=== PATIENT | female | born 1960 | race Caucasian/White ===

== ENCOUNTER → 2019-11-03 | Day surgery (SDC) | payer BC ==
[2019-11-01 11:21] VITALS: BMI 31.6
[~2019-11-03] MED LIST: LACTATED RINGERS 1,000 ML IV SCH; PROPOFOL 10 MG/ML 20 ML VIAL IV ONE; SODIUM CHLORIDE 0.9% 1,000 ML IV SCH
[2019-11-03 07:25] VITALS: RESP 18; TEMP 98.2
[2019-11-03 07:29] LABS: Basophils % (A) 1 %; Eosinophils # (A) 0.2 k/uL (0-0.7); Eosinophils % (A) 5 %; HCT 41.7 % (34.0-46.0); HGB 13.9 gm/dL (11.4-16.0); Lymphocytes # (A) 1.3 k/uL (1.0-4.8); Lymphocytes % (A) 29 %; MCH 31.9 pg (25.0-35.0); MCHC 33.3 g/dL (31.0-37.0); MCV 95.9 fL (80.0-100.0); Mean Platelet Volume 6.6; Monocytes # (A) 0.4 k/uL (0-1.0); Monocytes % (A) 8 %; Neutrophils # (A) 2.4 k/uL (1.3-7.7); Neutrophils % (A) 55 %; Platelet Count 263 k/uL (150-450); RBC 4.34 m/uL (3.80-5.40); RDW 12.1 % (11.5-15.5); WBC 4.3 k/uL (3.8-10.6)
[2019-11-03 07:53] LABS: African American GFR (CKD) >90 (>60 ml/min/1.73 sqM); Anion Gap 6 mmol/L; Blood Urea Nitrogen 14 mg/dL (7-17); Calcium 9.3 mg/dL (8.4-10.2); Carbon Dioxide 26 mmol/L (22-30); Chloride 108 mmol/L (98-107); Glucose 105 mg/dL (74-99); Non-African American GFR(CKD) 88 (>60 ml/min/1.73 sqM); Potassium 4.3 mmol/L (3.5-5.1); Sodium 140 mmol/L (137-145)
--- NOTE | 2019-11-03 08:43 | P.PCN ---
Preoperative Diagnosis: Diagnosis Congestive heart failure Nonischemic cardiomyopathy Status post [employer] medical biventricular ICD One run of nonsustained wide complex tachycardia consistent with supraventricular tachycardia with aberrancy Biventricular ICD was interrogated [employer] medical model #3357-40 see, serial number [id number] P waves 2.9 mV, pacing threshold 0.4 V at 0.5 ms and pacing impedance of 400 r waves 12 mV, pacing threshold 1.5 V at 1 ms and pacing impedance of 460 ohms LV pacing threshold of 1.25 V at 0.5 ms, pacing impedance of 1275 ohms High-voltage impedance 75 ohms Her arrhythmia in the VT zone was evaluated Morphology of the ventricular segmental is different from sinus but the atrium drives the ventricle Irregular rhythm, with RVR Defibrillation 11 testing was performed in the cathodal vector DC fibber shock was used to induce ventricular fibrillation His was adequately and appropriately detected at least sensitivity and successfully internally defibrillated Charge time 1.6 seconds, shocking impedance 75 ohms No pushup noise Device was reprogrammed In view of her supraventricular tachycardia with RVR, detection intervals in the VT 1 zone were increased to 90 beats Carvedilol increase to 1-1/2 tablets twice daily, each tablet 6.25 mg MADIT RIT programming Morphology discriminators turned on Follow-up with Dr. Pedroza within a month Discussed with Dr. Pedroza
[2019-11-03 09:12] VITALS: BP 144/77; PULSE 66
== END | disposition home or self-care (01) ==
LOC: CATHEP 06:51
PROVIDERS: ATTEND Internal Medicine Clinical Cardiac Electrophysiology
DX: Z45.02 Encounter for adjustment and management of automatic implantable cardiac defibrillator (principal); I42.8 Other cardiomyopathies; I11.0 Hypertensive heart disease with heart failure; I50.9 Heart failure, unspecified; Z91.14 Patient's other noncompliance with medication regimen; E03.9 Hypothyroidism, unspecified; E78.00 Pure hypercholesterolemia, unspecified; G47.33 Obstructive sleep apnea (adult) (pediatric); Z99.89 Dependence on other enabling machines and devices; Z79.899 Other long term (current) drug therapy
CPT/HCPCS: 80048; 84443; 85025; 93642

== ENCOUNTER → 2022-08-19 | Outpatient (CLI) | payer BC ==
--- NOTE | 2022-08-19 22:49 | BD ---
EXAMINATION TYPE: Axial Bone Density DATE OF EXAM: 08/19/2022 CLINICAL HISTORY: 62 years old Female. ICD-10 CODE: N951 POST YARELI SYMPTOMS Height: 62.5 in Weight: 201 lbs FRAX RISK QUESTIONS: Family History (Parent hip fracture): yes mother RISK FACTORS HISTORY OF: Family History of Osteoporosis: yes mother Active: yes Postmenopausal woman: age 48 Take estrogen and/or progesterone medications: yes How lon+ years MEDICATIONS: Additional Medications: heart meds, lisinopril, blood pressure meds, EXAM MEASUREMENTS: Bone mineral densitometry was performed using the Receptor System. Bone mineral density as measured about the Lumbar spine is: ----- L1-L4(G/cm2): 1.149 T Score Values are as follows: ----- L1: -0.7 ----- L2: 0.0 ----- L3: 0.7 ----- L4: -1.0 ----- L1-L4: -0.3 Z Score Values are as follows: ----- L1: 0.0 ----- L2: 0.7 ----- L3: 1.3 ----- L4: -0.4 ----- L1-L4: 0.4 Bone mineral density baseline Bone mineral density about the R hip (g/cm2): 0.950 Bone mineral density about the L hip (g/cm2): 0.971 T Score values are as follows: -----R Neck: -1.1 -----L Neck: -1.4 -----R Total: -0.5 -----L Total: -0.3 Z Score values are as follows: -----R Neck: -0.3 -----L Neck: -0.6 -----R Total: 0.1 -----L Total: 0.2 Bone mineral density baseline FRAX%s: The graph provided illustrates a 15.4% chance for a major osteoporotic fx and a 0.8% chance f or the hips probability for fx in 10 years time. IMPRESSION: Osteopenia (T Score between -2.5 and -1). There is slightly increased risk of fracture and the patient may be considered for treatment. Re-Screen 2-5 years. NOTE: T-SCORE=SD OF THE YOUNG ADULT MEAN.
--- NOTE | 2022-08-20 15:19 | MM ---
Reason for Exam: Screening (asymptomatic). Last mammogram was performed 21 year(s) and 6 month(s) ago. Patient History: Menarche at age 10. Patient has no children. Postmenopausal. Currently using Estrogen and Progesterone, starting at age 50. Paternal grandmother had breast cancer, bilateral, at or over age 50. Risk Values: Amanda 5 year model risk: 1.8%. NCI Lifetime model risk: 7.2%. Prior Study Comparison: 08/05/1994 Screening Mammogram, [facility]. 02/21/1999 Bilateral Screening Mammogram, [facility]. 02/24/2001 Bilateral Screening Mammogram, [facility]. 03/11/2001 Right Special View Mammogram, [facility]. 09/16/2001 Right Diagnostic Mammogram, [facility]. Tissue Density: There are scattered fibroglandular densities. Findings: Analyzed By CAD. Pattern appears symmetrical. Pacemaker overlies the left chest. No suspicious groups of microcalcifications, spiculated or lobular masses, architectural distortion or other secondary signs of malignancy are mammographically apparent. Overall Assessment: Benign, BI-RAD 2 Management: Screening Mammogram of both breasts in 1 year. A negative mammogram report should not preclude additional follow up of suspicious palpable abnormalities. Patient should continue monthly self breast exam. A clinical breast exam by your physician is recommended on an annual basis and results should be correlated with mammographic findings. Electronically signed and approved by: Truong Flaherty D.O. Radiologis
== END | disposition home or self-care (01) ==
LOC: RADMAMWWP 13:37
PROVIDERS: ATTEND Obstetrics & Gynecology
DX: Z12.31 Encounter for screening mammogram for malignant neoplasm of breast (principal); M85.89 Other specified disorders of bone density and structure, multiple sites; Z78.0 Asymptomatic menopausal state; Z80.3 Family history of malignant neoplasm of breast
CPT/HCPCS: 77063; 77067; 77080

== ENCOUNTER 2023-05-29 12:13 | Day surgery (SDC) | payer BC, MEDICARE ==
[~2023-05-29 12:13] MED LIST changes: -PROPOFOL 10 MG/ML 20 ML VIAL IV ONE; +ceFAZolin 1 GM in SODIUM CHLORIDE 0.9% IRRIG BTL 250 ML IRRIGATION PRN
[2023-05-29] MEDS: SODIUM CHLORIDE 0.9% 1,000 ML IV ONE (12:30)
[2023-05-29 12:46] LABS: Basophils % (A) 1 %; Eosinophils # (A) 0.2 k/uL (0-0.7); Eosinophils % (A) 3 %; HCT 40.9 % (34.0-46.0); HGB 13.7 gm/dL (11.4-16.0); Lymphocytes # (A) 1.3 k/uL (1.0-4.8); Lymphocytes % (A) 29 %; MCH 31.6 pg (25.0-35.0); MCHC 33.4 g/dL (31.0-37.0); MCV 94.6 fL (80.0-100.0); Mean Platelet Volume 7.3; Monocytes # (A) 0.3 k/uL (0-1.0); Monocytes % (A) 7 %; Neutrophils # (A) 2.7 k/uL (1.3-7.7); Neutrophils % (A) 58 %; Platelet Count 260 k/uL (150-450); RBC 4.32 m/uL (3.80-5.40); RDW 12.2 % (11.5-15.5); WBC 4.7 k/uL (3.8-10.6)
[2023-05-29 13:12] LABS: African American GFR (CKD) >90 (>60 ml/min/1.73 sqM); Anion Gap 7 mmol/L; Blood Urea Nitrogen 13 mg/dL (7-17); Calcium 9.3 mg/dL (8.4-10.2); Carbon Dioxide 24 mmol/L (22-30); Chloride 108 mmol/L (98-107); Glucose 107 mg/dL (74-99); Non-African American GFR(CKD) 86 (>60 ml/min/1.73 sqM); Potassium 4.3 mmol/L (3.5-5.1); Sodium 139 mmol/L (137-145)
[2023-05-29 13:28] VITALS: RESP 16; TEMP 97.7
[2023-05-29] MEDS ORDERED: KETAMINE HCL IN 0.9 % NACL 50 MG/5 ML SYRINGE ONE (14:36)
[2023-05-29] MEDS ORDERED: fentaNYL (PF) 50 MCG/ML 2 ML AMP ONE (14:36)
[2023-05-29] MEDS ORDERED: MIDAZOLAM 2 MG/2 ML VIAL ONE (14:36)
[2023-05-29] MEDS ORDERED: PROPOFOL 10 MG/ML 20 ML VIAL IV ONE (14:36)
[2023-05-29] MEDS ORDERED: GLYCOPYRROLATE 0.2 MG/ML 2 ML VIAL ONE (14:36)
[2023-05-29] MEDS ORDERED: LIDOCAINE 1% INJ 10MG/ML (20 ML MDV) ONE (15:05)
[2023-05-29] MEDS: LIDOCAINE 1% INJ 10MG/ML (20 ML MDV) SQ ONE (15:15)
[2023-05-29] MEDS: VANCOMYCIN 1,500 MG in SODIUM CHLORIDE 0.9% 500 ML 500 ML IVPB PRN (15:33)
[2023-05-29] MEDS ORDERED: ONDANSETRON 4 MG/2 ML VIAL IVP STA (16:45)
[2023-05-29] MEDS: ONDANSETRON 4 MG/2 ML VIAL ONE (16:48)
[2023-05-29] MEDS: ACETAMINOPHEN IV (For NPO) 1,000 MG in EMPTY BAG 1 BAG IVPB STA (16:52)
[2023-05-29] MEDS ORDERED: ACETAMINOPHEN TAB 325 MG TAB PO PRN (16:53)
--- NOTE | 2023-05-29 17:00 | P.EPPROC ---
- EP Procedure Note Electrophysiology Procedure Note: Diagnosis History of cardiomyopathy, nonischemic in nature Congestive heart failure [place] Heart Association class class II Wide QRS left bundle branch block morphology Improvement in LV systolic function with biventricular pacing, left ventricular ejection fraction has improved to 50% as expected in a female with nonischemic cardiomyopathy with a left bundle branch block pattern Procedure: Biventricular ICD generator change for device at SADIE, normal battery depletion Result: Successful biventricular ICD generator change Atrial lead: 3.5 mV, pacing threshold in the atrium 0.5 V at point 5 ms and pacing impedance 390 ohms RV ICD lead: Greater than 12 mV, pacing threshold 1.5 V at 1 ms pacing impedance of 600 ohms Left ventricular lead: 1.5 V at 0.5 ms pace impedance of 1350 ohms High-voltage impedance 68 ohms Procedure details: Patient was brought to the EP lab in a fasting state. Written informed consent was obtained prior to the procedure. Options, pros and cons, benefits and risks and complications discussed with patient in detail prior to the procedure (shared decision making) previously. Importance of continuing medical treatment emphasized previously. Alternatives discussed previously. Under conscious sedation an incision was made directly over the previous surgical site after antibiotic infusion. Incision was carried down to the level of the generator. Chronic generator implanted New Villanueva generator implanted, unify [employer] model #3357-40 C Transfer tech pocket irrigated with antibiotic solution. Antibiotic pouch placed Leads connected to the biventricular ICD generator. Wound closed in 3 layers and dressed per protocol Biventricular ICD interrogated and programmed. Appropriate pacing parameters, antitachycardia therapies with antitachycardia pacing cardioversion defibrillations programmed. AV delay and biventricular pacing parameters programmed to achieve optimal physiologic pacing Patient tolerated the procedure well without any acute complications. See scanned device report in EMR for lead details
[2023-05-29] MEDS ORDERED: carvediloL 6.25 MG TAB PO SCH (17:30)
[2023-05-29 19:20] VITALS: BP 186/91; PULSE 72
[2023-05-30] MEDS ORDERED: LEVOTHYROXINE 50 MCG TAB PO SCH (06:30)
[2023-05-30] MEDS ORDERED: LOSARTAN 50 MG TAB PO SCH (09:00)
== END 2023-05-29 20:30 | disposition home or self-care (01) ==
LOC: CATHEP 12:13 → 6NMEDSUR 16:48 → CATHEP 20:30
PROVIDERS: ATTEND Internal Medicine Clinical Cardiac Electrophysiology
DX: I44.7 Left bundle-branch block, unspecified (principal); I42.9 Cardiomyopathy, unspecified; I11.0 Hypertensive heart disease with heart failure; I50.9 Heart failure, unspecified; E78.5 Hyperlipidemia, unspecified; G47.33 Obstructive sleep apnea (adult) (pediatric); E03.9 Hypothyroidism, unspecified; Z95.0 Presence of cardiac pacemaker; Z79.890 Hormone replacement therapy; Z79.899 Other long term (current) drug therapy; Z98.890 Other specified postprocedural states
CPT/HCPCS: 33264; 80048; 85025; C1882; J2250; J3370; J0690; J2405; J2001; J3010; J0131; J2704

== ENCOUNTER → 2024-08-09 | Outpatient (CLI) | payer MEDICARE | END | disposition home or self-care (01) | LOC: RADMAMWWP 13:13 | PROVIDERS: ATTEND Family Medicine | DX: Z53.9 Procedure and treatment not carried out, unspecified reason (principal) ==

== ENCOUNTER → 2024-08-26 | Outpatient (CLI) | payer MEDICARE ==
[2024-08-26 14:55] VITALS: BP 150/88; PULSE 69; RESP 12; TEMP 98.1
--- NOTE | 2024-08-26 15:25 | P.SLEEP ---
History of Present Illness DATE: 08/26/2024 CONSULTATION/NEW PATIENT EVALUATION HISTORY OF PRESENT ILLNESS/SLEEP-WAKE EVALUATION: 64-year-old lady had been e valuated in the sleep center for possible obstructive sleep apnea hypopnea syndrome. Patient has history of obstructive sleep apnea diagnosed in 2011, she was on CPAP treatment, stopped treatment because developed sinus problems with CPAP. Last CPAP unit more than 5-year-old. SLEEP SCHEDULE: Usually sleep schedule from 10 PM to 7 AM 7 days a week. FALLING ASLEEP: Sometimes patient has difficulties with falling asleep. DURING SLEEP: Patient has loud snoring and wakes up from sleep 5 times with episodes of stop breathing during the sleep. Positive history of grinding teeth, dry mouth. No history of hypnogogical hallucinations, sleep paralysis, or cataplexy. DURING THE DAY/WAKE STATE: Patient feels sleepiness during the day. Truman sleepiness scale is an extremely high range of 17. Patient may take up to 2 naps during the day. PAST MEDICAL HISTORY: Hypertension, hypothyroidism, cardiac arrhythmia. PAST SURGICAL HISTORY: Permanent pacemaker insertion. MEDICATIONS: Please see below. SOCIAL HISTORY: Please see follow. FAMILY HISTORY: Please see below. REVIEW OF SYSTEMS: Loud snoring, multiple awakenings from sleep, sleepiness during the day. No fevers. No double vision. No recent chest pain. No shortness of breath. No abdominal pain. No bleeding episodes. No blood in urine. No seizure episodes. PHYSICAL EXAMINATION: GENERAL: A pleasant patient without any distress. VITAL SIGNS: Please see below, weight 205 pounds, BMI 34.6. HEENT: PERRLA, EOMI. Evaluation of oropharynx showed tongue protrudes midline, low position of soft palate Mallampati 4. NECK: Supple. No JVD. Thyroid is not palpable. [] inches in circumference. LUNGS: Clear to percussion and to auscultation. Good air exchange. No wheezing or rhonchi. HEART: S1, S2 regular. No murmurs, gallops or rubs. ABDOMEN: Soft and nontender. Bowel sounds are present. No organomegaly appreciated. EXTREMITIES: No clubbing or cyanosis. MEDICAL SERVICES ASSISTANT: Awake, alert, and oriented x3. Cranial nerves 2 to 7 intact. There is no fasciculation or atrophy noted. No focal deficits observed. ASSESSMENT: 1. Loud snoring, multiple awakenings from sleep up to 5 times, extremely low position of soft palate Mallampati 4, sleepiness with Truman Sleepiness Scale 17, history of obstructive sleep apnea. Obstructive sleep apnea hypopnea syndrome. 2. Obesity, BMI 34.6. 3. Hypertension. 4. Hypothyroidism. 5 status post permanent pacemaker insertion. PLAN: 1. Polysomnography for evaluation of patient's breathing during sleep. 2. Following plan after reading sleep study. 3. Preferable position during sleep on the side. 4. No driving if patient feels any sleepiness. Patient is aware of civil and criminal liability for unsafe driving. 5. Sleep hygiene with regular sleep time for at least 7.5-8 hours. 6. Watching and losing weight. Thank you very much for referring this patient for consultation. Sincerely, Manuel Lamas MD, PhD, FAASM. Diplomat of [place] [employer] Sleep Medicine, Sleep Medicine Board by [place] [employer] Specialities [place] [employer] Medicine Extension Service Advisor of [facility] [place] cc: Kelsey Tee MD Past Medical History Past Medical History: Sleep Apnea/CPAP/BIPAP Additional Past Medical History / Comment(s): See Dr Rehman H&P, hemorrhoids, uses CPAP History of Any Multi-Drug Resistant Organisms: None Reported Past Surgical History: AICD Past Anesthesia/Blood Transfusion Reactions: No Reported Reaction Type of Cardiac Device: Biventricular Pacemaker, AICD Device Placement Date:: 2011 or 2012 Past Psychological History: No Psychological Hx Reported Smoking Status: Never smoker Past Alcohol Use History: Occasional Past Drug Use History: None Reported - Past Family History Sister(s) Family Medical History: Cancer Medications and Allergies Home Medications Medication Instructions Recorded Confirmed Type Carvedilol [Coreg] 6.25 mg PO BID 08/30/15 08/26/24 History Estrogen,Con/M-Progest Acet 1 each PO DAILY 08/30/15 05/29/23 History [Prempro 0.45-1.5 mg Tablet] L.acidoph,Paracasei, B.lactis 1 each PO DAILY 08/30/15 05/26/23 History [Probiotic] Losartan [Cozaar] 50 mg PO DAILY 11/01/19 08/26/24 History Levothyroxine Sodium [Synthroid] 50 mcg PO DAILY 05/26/23 08/26/24 History Allergies Allergy/AdvReac Type Severity Reaction Status Date / Time horse dander Allergy Unknown Verified 05/29/23 12:33 pistachio nut Allergy Anaphylaxis Verified 05/29/23 12:33 Physical Exam Vitals: Vital Signs Temp Pulse Resp BP Pulse Ox 08/26/24 14:51 98.1 F 69 12 150/88 96 Sleep Note - Sleep Data ESS Total: 17 - Sleep Note Sleep Note: Temperature: 98.1 F Pulse Rate: 69 Respiratory Rate: 12 Blood Pressure: 150/88 SpO2: 96 Height: Weight: BMI: Neck Circumference:
== END ==
LOC: 3 N SLEEP 14:08
PROVIDERS: ATTEND Internal Medicine
DX: G47.33 Obstructive sleep apnea (adult) (pediatric) (principal); E66.9 Obesity, unspecified; I10 Essential (primary) hypertension; E03.9 Hypothyroidism, unspecified; Z68.34 Body mass index [BMI] 34.0-34.9, adult; Z95.0 Presence of cardiac pacemaker; Z91.048 Other nonmedicinal substance allergy status; Z91.018 Allergy to other foods
CPT/HCPCS: 99211

== ENCOUNTER 2024-10-07 19:40 | Outpatient (CLI) | payer MEDICARE ==
--- NOTE | 2024-10-13 14:06 | P.PCN ---
Description of Procedure: CLINICAL: Titration with positive air pressure has been done for correction of respiratory abnormalities during sleep. DESCRIPTION OF PROCEDURE: The standard montage for clinical polysomnography included the electroencephalogram, the electrocardiogram, the mentalis surface electromyography and Lead II cardiography. The respiratory battery consisted of measurements of nasal /buccal air flow, pressure transducer measurements from the nose, thoracic and /or abdominal effort and intercostal surface electromyography. Video monitoring has been done to check for any parasomnia events. Nocturnal oxyhemoglobin saturations were obtained by finger oximetry. Step-daniel titration with positive airway pressure was utilized to control respiratory events. Raw data of sleep recording has been reviewed and is adequate. RESULTS: Sleep efficiency was normal 93.8%. Latency to sleep onset was in short range 7.0 minutes.]. Sleep architecture showed stage N1 was short 0.5%, Delta sleep was slightly short 4.3%, REM sleep was normal 26.9%. Heart rate was minimum 56 BPM, maximum 67 BPM, average 61 BPM. EMG showed 0 periodic limb movements per hour with 0 micriarousals per hour. PAP titration have been done with CPAP up to the pressure 12 cm H2O. The best results were at the pressure 11 cm H2O. Apnea hypopnea index reduced to 2.7. IMPRESSION: 1. Severe obstructive sleep apnea hypopnea syndrome, original apnea-hypopnea index 64.8 on controle with PAP treatment. 2. Normal significant periodic limb movements have been documented. Please see other impressions from consultation. PLAN: 1. The patient will have treatment with positive air pressure equipment with the level of pressure AutoPap 5-12 cm H2O and should use it every night for the whole night. 2. Watching and losing weight. 3. Sleep hygiene with regular time in bed for at least 8 hours. 4. No driving if feeling any sleepiness. 5. I will see the patient for follow up visit to explain the results of the test, recommendations, check compliance with treatment and make any necessary adjustment related to mask fitting, pressure and humidification. Thank you very much for allowing me to participate in the management of your patient. Sincerely, Manuel Lamas MD, PhD, FAASM Diplomat of [place] [employer] Sleep Medicine Board of [place] [employer] It Systems Manager of [facility] [place] cc: Ileana Tee MD
== END 2024-10-08 05:50 | disposition home or self-care (01) ==
LOC: 3 N SLEEP 19:40
PROVIDERS: ATTEND Internal Medicine
DX: G47.33 Obstructive sleep apnea (adult) (pediatric) (principal); G47.61 Periodic limb movement disorder; Z99.89 Dependence on other enabling machines and devices; Z91.018 Allergy to other foods; Z91.048 Other nonmedicinal substance allergy status
CPT/HCPCS: 95811